=== PATIENT | female | born 1990 | race Asian ===

== ENCOUNTER → 2017-07-16 | Outpatient (CLI) | payer OTHER ==
--- NOTE | 2017-07-19 15:41 | MAMMOGRAPHY REPORT ---
ULTRASOUND OF BOTH BREASTS: 07/16/2017 CLINICAL HISTORY: The patient reports she had a history of bilateral breast lumps status post surgica l excisions in [place] in 2009. She reports that one of the masses in the left breast that was excised was "almost cancer." She underwent a follow-up ultrasound in 2016 in [place], and was told to have an other follow-up ultrasound in 2 years. The patient denies any palpable lumps. COMPARISON: No prior exams were available for comparison. The outside ultrasound exam performed in [facility] is not available for review. TECHNIQUE: Real-time ultrasound of both breasts was performed. FINDINGS: Real-time, high-resolution ultrasound was performed of both breasts including all 4 quadra nts and subareolar regions. In the left breast at 1:00, 3 cm from the nipple, there is an oval hypoe choic circumscribed 4 x 5 mm mass which is probably benign and may represent a fibroadenoma. A shado wing hypoechoic region is seen within the left 1:00 periareolar breast which likely represents postsu rgical changes (the patient cannot pinpoint the location of her prior surgeries). In the left breast at 4:00, 4 cm from the nipple, there is an oval circumscribed hypoechoic 4 x 4 mm mass which is prob ably benign and likely represents a fibroadenoma. 2 adjacent nearly anechoic masses are seen within the left 4:00 periareolar breast, one measuring 3 x 3 mm and the other measuring 3 x 2 mm; the masses likely represent cysts. In the left breast at 7:00, 2 cm from the nipple, there is a shadowing hypo echoic region which has the appearance of possible postsurgical changes. Next to the shadowing regio n is a hypoechoic non-circumscribed solid-appearing mass which measures 10 x 6 x 5 mm. The patient r eports some tenderness when scanning over this region. Given that the mass was possibly removed in t his region, this could represent a recurrent mass. Recommend ultrasound-guided biopsy for further ev aluation. In the left breast at 10:00 periareolar region, there are 2 adjacent hypoechoic circumscri bed masses, one measuring 3 x 3 x 3 mm and the other measuring 4 x 2 x 4 mm; masses are probably cabrera gn and may represent fibroadenomas. In the left 11:00 periareolar breast, there is a lobulated paral lel hypoechoic solid appearing mass which measures 8 x 3 x 7 mm. The mass is probably benign and may represent a fibroadenoma. In the right 1:00 periareolar breast, there is a possible isoechoic mass versus normal fat lobule whi ch measures 4 x 4 mm. In the right 3:00 breast, 2 cm from the nipple, another isoechoic mass versus normal fat lobule is seen which measures 3 x 5 mm. In the right 6:00 breast, 4 cm from the nipple, t here is a lobulated hypoechoic solid mass which measures 10 x 6 x 9 mm. The mass is indeterminate an d ultrasound-guided core needle biopsy is recommended for further evaluation. In the right 12:00 per iareolar breast, there is ill-defined hypoechoic tissue which may represent postsurgical changes. IMPRESSION: ACR BI-RADS CATEGORY 4: SUSPICIOUS - FOLLOW-UP RECOMMENDED Multiple hypoechoic solid-appearing masses are seen bilaterally. The masses may represent fibroadeno mas, although the patient reports a history of a prior excision of a left breast mass which was repor tedly precancerous. Given no prior exams available to document stability, recommend ultrasound-guide d core needle biopsy of the 2 dominant masses, including a 10 mm mass in the left 7:00 breast and a 1 0 mm mass in the right 6:00 breast. Pending benign pathology results, would recommend short interval follow-up ultrasound in 6 months to reevaluate the other smaller similar appearing masses bilaterall y which may represent fibroadenomas (30 minute time slot). A phone call was made to the physician's office to confirm faxed results were received. The patient was verbally notified of the results. She tentatively scheduled the biopsies before leaving the depa rtment. Afshan Segura M.D. ah/:07/16/2017 16:18:29 Director Call: Montserrat CHAVIRA)(Cassy), [facility] letter sent: Abnormal 4/5 BI-RADS Code: ACR BI-RADS Category 4: Suspicious
== END | disposition home or self-care (01) ==
LOC: C.MAMM 09:32
PROVIDERS: ATTEND Internal Medicine
DX: N63.10 Unspecified lump in the right breast, unspecified quadrant (principal); N63.20 Unspecified lump in the left breast, unspecified quadrant

== ENCOUNTER → 2017-07-29 | Outpatient (CLI) | payer OTHER ==
--- NOTE | 2017-07-29 10:03 | Discharge Instructions ---
Discharge Instructions Procedure Procedure Date: Jul 29, 2017. Reason for visit: Bilateral Masses X 2. Discharge Discharge Date: Jul 29, 2017. Discharge Diagnosis: status post breast biopsy Instructions Activity Recommendations: Additional Limitations (see below) Return to School/Work: no limitations Recommended Home Diet: No Limitations Provider Instructions: ACTIVITY RECOMMENDATIONS: * No lifting, pushing, pulling or exercising the affected side for three days. RETURN TO SCHOOL/WORK: * You may return to work/school after the procedure, but do not perform any strenuous activities for 24 to 48 hours. MEDICATIONS: * Tylenol (two 325 mg) every four to six hours if needed for mild pain (if not allergic to Tylenol). DIET: * Resume previous diet. SPECIAL CARE INSTRUCTIONS: * Keep biopsy site dry for 24 hours. May shower after 24 hours, but do not soak (bathe) incision. * May remove Tegaderm (plastic patch) tomorrow AFTER showering. * Leave the steri-strips on for one week. Allow the steri-strips to fall off by themselves. If not off after one week, you may remove them. You may place a Bandaid crosswise over the strips, if desired. * Apply ice 10 minutes on and 10 minutes off as needed. * Wear a bra at bedtime to sleep more comfortably for 2-3 days. * Your referring physician should have the results after approximately 5 to 7 business days. * Call for unusual bleeding, fever, drainage, etc or if you have any questions call during normal business hours or after hours call Dr Segura, . FOLLOW UP VISIT: Follow-up with Referring Physician as scheduled. Ricci Irwiny Recommendations: Call your doctor if: * Temperature above 101 degrees * Pain not relieved by pain medicine ordered * There is increased drainage or redness from any incision * You have any unanswered questions or concerns. Your Doctors Instructions noted above were prepared by provider Afshan Segura. Patient Signature Section: Patient Instructions Signature Page Cuco [place] Patient (or Guardian) Signature/Date: I have read and understand the instructions given to me by my caregivers. Caregiver/RN/Doctor Signature/Date: The above-named patient and/or guardian has received patient instructions on this date. + Original Patient Signature Page (only) stays with chart. Please make copy for patient.
--- NOTE | 2017-07-29 15:16 | MAMMOGRAPHY REPORT ---
ULTRASOUND GUIDED BIOPSY LEFT BREAST: 07/29/2017 CLINICAL HISTORY: Left 7:00 breast mass at the surgical bed. PATIENT CONSENT: The procedure, risks and benefits were discussed with the patient and informed writt en consent was obtained. A timeout was performed immediately prior to the procedure. PROCEDURE DESCRIPTION: With ultrasound guidance, aseptic technique, and lidocaine as the local anesth etic (1% lidocaine to anesthetize the skin and 1% lidocaine with epinephrine to anesthetize the deepe r tissues), the mass of concern in the left 7:00 breast was sampled 3 times with a 14-gauge Achieve b iopsy needle. Immediately thereafter, with ultrasound guidance, aseptic technique, and lidocaine as the local anesthetic, a metallic localizer clip was placed at the biopsy site. Direct pressure was a pplied to the site immediately post procedure and hemostasis was achieved. The patient tolerated the procedure without complication. She was given wound care instructions. The specimens were sent to [facility] for analysis. COMPARISON: Comparison is made to exam dated: 07/16/2017 ultrasound - [facility]. IMPRESSION: ULTRASOUND GUIDED BIOPSY Ultrasound-guided core needle biopsy of the left 7:00 breast mass, with clip placement. The patient will receive pathology results from her referring provider. Afshan Segura M.D. /:07/29/2017 10:04:53 Stockfeed Miller: Montserrat CHAVIRA)(Cassy), [facility]
--- NOTE | 2017-07-29 15:16 | MAMMOGRAPHY REPORT ---
ULTRASOUND GUIDED BIOPSY RIGHT BREAST: 07/29/2017 CLINICAL HISTORY: Right 6:00 breast mass. PATIENT CONSENT: The procedure, risks and benefits were discussed with the patient and informed writt en consent was obtained. A timeout was performed immediately prior to the procedure. PROCEDURE DESCRIPTION: With ultrasound guidance, aseptic technique, and lidocaine as the local anesth etic (1% lidocaine to anesthetize the skin and 1% lidocaine with epinephrine to anesthetize the deepe r tissues), the mass of concern in the right 6:00 breast was sampled 3 times with a 14-gauge Achieve biopsy needle. Immediately thereafter, with ultrasound guidance, aseptic technique, and lidocaine as the local anesthetic, a metallic localizer clip was placed within the mass. Direct pressure was robert lied to the site immediately post procedure and hemostasis was achieved. The patient tolerated the pr ocedure without complication. She was given wound care instructions. The specimens were sent to path ology for analysis. COMPARISON: Comparison is made to exam dated: 07/16/2017 ultrasound - [facility]. IMPRESSION: ULTRASOUND GUIDED BIOPSY Ultrasound-guided core needle biopsy of the right 6:00 breast mass, with clip placement. The patient will receive pathology results from her referring provider. Afshan Segura M.D. /:07/29/2017 10:06:02 Dishcloth Folder: Montserrat CHAVIRA)(Cassy), [facility]
== END | disposition home or self-care (01) ==
LOC: C.MAMM 09:16
PROVIDERS: ATTEND Internal Medicine
DX: D24.2 Benign neoplasm of left breast (principal); D24.1 Benign neoplasm of right breast